=== PATIENT | male | born 2000 | race Caucasian/White ===

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

== ENCOUNTER → 2022-09-19 | Outpatient (CLI) | payer BC ==
[2022-09-19 17:08] LABS: BASO % 0.5 % (0.0-1.0); EOS # 0.1 10^3/uL (0.0-0.5); EOS % 1.4 % (0.0-3.0); HEMOGLOBIN 16.2 g/dl (13.5-17.5); LYMPH # 1.6 10^3/uL (1.5-5.0); LYMPH % 25.7 % (24.0-44.0); MEAN CORPUSCULAR HEMOGLOBIN 29.3 pg (27.0-33.0); MEAN CORPUSCULAR HGB CONC 33.8 g/dl (32.0-36.5); MEAN CORPUSCULAR VOLUME 86.8 fl (80.0-96.0); MONO # 0.6 10^3/uL (0.0-0.8); MONO % 9.6 % (2.0-8.0); NEUTROPHILS % 62.5 % (36.0-66.0); PLATELET COUNT, AUTOMATED 349 10^3/uL (150-450); RED BLOOD COUNT 5.53 10^6/uL (4.30-6.10); WHITE BLOOD COUNT 6.3 10^3/uL (4.0-10.0)
[2022-09-19 18:08] LABS: ALBUMIN 4.5 G/DL (3.2-5.2); ALKALINE PHOSPHATASE 112 U/L (46-116); ALT/SGPT 58 U/L (7.0-40); AST/SGOT 60 U/L (<34); BILIRUBIN,TOTAL 0.9 MG/DL (0.3-1.2); BLOOD UREA NITROGEN 8 MG/DL (9-23); CARBON DIOXIDE LEVEL 29 MMOL/L (20-31); CHLORIDE LEVEL 102 MMOL/L (98-107); CREATININE FOR GFR 0.83 MG/DL (0.70-1.30); GLUCOSE, FASTING 89 MG/DL (60-100); IRON (FE) 86 UG/DL (65-175); POTASSIUM SERUM 4.4 MMOL/L (3.5-5.1); SODIUM LEVEL 139 MMOL/L (136-145); TOTAL PROTEIN 7.6 G/DL (5.7-8.2)
[2022-09-19 18:12] LABS: THYROID STIMULATING HORMONE 1.231 uIU/ML (0.48-4.17)
[2022-09-19 18:13] LABS: FREE T4 1.03 NG/DL (0.83-1.43)
[2022-09-19 18:14] LABS: TESTOSTERONE 587 NG/DL (241-827)
[2022-09-19 18:15] LABS: TOTAL 25(OH) VITAMIN D 16.6 NG/ML (20.0-100.0); VITAMIN B12 LEVEL 570 PG/ML (211-911)
[2022-09-19 18:24] LABS: TOTAL T3 118.6 NG/DL (86.0-192.0)
[2022-09-19 20:31] LABS: MONO SCRN NEGATIVE (NEGATIVE)
== END ==
LOC: M LAB 16:10
PROVIDERS: ATTEND Physician Assistant
DX: R53.82 Chronic fatigue, unspecified (principal)

== ENCOUNTER → 2022-11-21 | Outpatient (REF) | payer BC ==
[2022-11-21 13:07] LABS: C REACTIVE PROTEIN QUANTITATIV < 0.40 MG/DL (<1.0)
[2022-11-21 13:09] LABS: IRON (FE) 74 UG/DL (65-175); PERCENT SATURATION 23.2 % (19.7-50.0); TOTAL IRON BINDING CAPACITY 319 UG/DL (250-425)
[2022-11-21 14:19] LABS: FERRITIN 90.6 NG/ML (10.5-307.3)
[2022-11-22 20:07] LABS: TESTOSTERONE FREE (DIRECT) 12.8 pg/mL (9.3-26.5)
== END ==
LOC: M LAB REF 12:15
PROVIDERS: ATTEND Internal Medicine
DX: R53.83 Other fatigue (principal); M25.50 Pain in unspecified joint; R68.82 Decreased libido